=== PATIENT | male | born 1960 | race African-American/Black ===

== ENCOUNTER 2019-09-15 08:15 | Emergency (ER) | payer SELFPAY ==
[~2019-09-15] VITALS: Ht 182.9 cm; Wt 108.0 kg
[2019-09-15 08:43] VITALS: BP 126/103
[2019-09-15] MEDS ORDERED: ACETAMINOPHEN 500MG TABLET PO ONE (09:00)
[2019-09-15] MEDS ORDERED: LIDOCAINE 1%/EPI 1:100,000 10 ML VIAL IJ ONE (09:00)
[2019-09-15] MEDS ORDERED: BACITRACIN ZINC OINT UDPKT TOP ONE (09:00)
[2019-09-15] MEDS ORDERED: BACITRACIN 15GM TUBE TOP ONE (09:15)
[2019-09-15] MEDS ORDERED: LIDOCAINE HCL/EPINEPHRINE 1%-EPI 1:100,000 20 ML VIAL INFIL NR (09:45)
[2019-09-15] MEDS ORDERED: LIDOCAINE HCL 1% 20ML VIAL (Pyxis) INJ INFIL ONE (09:45)
[2019-09-15] MEDS ORDERED: TETANUS, DIPHTHERIA, PERTUSSIS VAC/PF 0.5ML (>7YR OLD) IM ONE (09:45)
== END 2019-09-15 10:20 | disposition home or self-care (01) ==
LOC: ER 08:15
DX: S61.217A Laceration without foreign body of left little finger without damage to nail, initial encounter (principal); Z87.828 Personal history of other (healed) physical injury and trauma; Z98.890 Other specified postprocedural states; W25.XXXA Contact with sharp glass, initial encounter; Y93.89 Activity, other specified; Y92.010 Kitchen of single-family (private) house as the place of occurrence of the external cause
CPT/HCPCS: 12002; 73140; 90471; 90715; 99283; J3490; Z7610

== ENCOUNTER 2019-10-03 09:15 | Emergency (ER) | payer SELFPAY ==
[~2019-10-03] VITALS: Ht 182.9 cm; Wt 108.0 kg
[2019-10-03 09:40] VITALS: BP 153/84
== END 2019-10-03 11:01 | disposition home or self-care (01) ==
LOC: ER 09:15
DX: Z48.02 Encounter for removal of sutures (principal)
CPT/HCPCS: 99281; Z7610